=== PATIENT | female | born 1990 | race Caucasian/White ===

== ENCOUNTER 2018-01-04 18:39 | Emergency (ER) | payer OTHER ==
[2018-01-04 18:49] VITALS: BMI 31.8
[2018-01-04] MEDS ORDERED: NS 1000 ML 1,000 ML IV ONE (19:21)
[2018-01-04] MEDS ORDERED: ZOFRAN INJ 4 MG VIAL IVP ONE (19:21)
[2018-01-04] MEDS ORDERED: NS 1000 ML 1,000 ML ONE (19:22)
[2018-01-04] MEDS ORDERED: ZOFRAN INJ 4 MG VIAL ONE (19:22)
[2018-01-04] MEDS ORDERED: BENADRYL INJ 50 MG VIAL IVP ONE (19:34)
[2018-01-04] MEDS ORDERED: BENADRYL INJ 50 MG VIAL ONE (19:35)
[2018-01-04 19:46] LABS: BASOPHILS % (AUTO) 0.4 % (0.2-1.0); EOSINOPHILS % (AUTO) 0.4 % (0.9-2.9); HEMATOCRIT 40.6 % (36.0-47.0); LYMPHOCYTES # (AUTO) 0.9 X10^3/uL (1.3-2.9); LYMPHOCYTES % (AUTO) 19.9 % (21.0-51.0); MEAN CORPUSCULAR HEMOGLOBIN 27.7 pg (27.0-34.0); MEAN CORPUSCULAR HGB CONC 34.5 g/dL (33.0-35.0); MEAN CORPUSCULAR VOLUME 80.3 fL (80.0-100.0); MEAN PLATELET VOLUME 8.9 fL (7.4-11.0); MONOCYTES # (AUTO) 0.3 x10^3/uL (0.3-0.8); MONOCYTES % (AUTO) 5.9 % (0.0-13.0); NEUTROPHILS # (AUTO) 3.3 x10^3/uL (2.2-4.8); NEUTROPHILS % (AUTO) 73.4 % (42.0-75.0); PLATELET COUNT 223 X10^3/uL (150.0-450.0); RED BLOOD COUNT 5.06 X10^6/uL (3.5-5.4); RED CELL DISTRIBUTION WIDTH 15.3 % (11.6-16.5); WHITE BLOOD COUNT 4.5 X10^3/uL (3.6-10.0)
[2018-01-04 19:47] LABS: BILIRUBIN,URINE NEGATIVE (NEGATIVE); BLOOD/HEMOGLOBIN,URINE NEGATIVE (NEGATIVE); GLUCOSE, URINE NEGATIVE (NEGATIVE); KETONES,URINE 1+ (NEGATIVE); LEUKOCYTE ESTERASE ,URINE NEGATIVE (NEGATIVE); NITRITES,URINE NEGATIVE (NEGATIVE); PROTEIN,URINE 1+ (NEGATIVE); UROBILINOGEN,URINE 1+ (NORMAL)
[2018-01-04 19:55] LABS: ALANINE AMINOTRANSFERASE 23 Units/L (12-78); ALBUMIN 3.7 g/dL (3.4-5.0); ALKALINE PHOSPHATASE 63 Units/L (46-116); ASPARTATE AMINO TRANSFERASE 17 Units/L (15-37); BLOOD UREA NITROGEN 14 mg/dL (7-18); CALCIUM 7.8 mg/dL (8.5-10.1); CARBON DIOXIDE 26.2 mmol/L (21-32); CHLORIDE 101 mmol/L (98-107); CREATININE 0.77 mg/dL (0.55-1.02); SODIUM 135 mmol/L (136-145); TOTAL PROTEIN 7.8 g/dL (6.4-8.2); eGFR BLACK RACES > 60 (>60); eGFR NON BLACK RACES > 60 (>60)
[2018-01-04 19:55] LABS: APPEARANCE,URINE CLEAR (CLEAR); COLOR,URINE DARK YELLOW (YELLOW); RBC,URINE NONE SEEN /HPF (NONE SEEN)
[2018-01-04 19:56] LABS: AMORPHOUS SEDIMENT,UR 1+ /HPF (NEGATIVE); BACTERIA,URINE NEGATIVE /HPF (NEGATIVE); SQUAMOUS EPITHELIAL CELL,UR MODERATE /HPF (NEGATIVE)
[2018-01-04 21:27] VITALS: BP 101/56
--- NOTE | 2018-01-04 21:27 | DR.NAUSEAF ---
HPI - Time Seen Time seen: 19:30 - Primary Care Physician Primary Care Physician: NFD - HPI Comment HPI Comment: GETTING WORSE. COUGH CONGESTION AND COLD PRESENT. - Complaints Chief Complaint Doctors Comments: N/V AND BODY ACHES TIMES ONE DAY. Chief Complaint:: PT C/O N/V AND ACHING ALL OVER THAT STARTED LAST NIGHT .. BR - Reviewed Nurses Notes Reviewed: Yes - Source History Provided: Patient - Mode of Arrival Mode of Arrival: Ambulatory - Timing Onset of Chief Complaint: 01/03/18 - Context Onset: Spontaneous Recent: None History of: None - Quality Quality: Bilious - Associated Signs and Symptoms Abdominal Pain Quality: Cramping Abdominal Pain Location: Diffuse Symptoms: Abdominal Pain PMH - PMH Past Medical History: Yes Past Medical History: Hypertension Past Surgical History: Yes Surgical History: Past Surgical History Comment: C-SECTIONS,, 2 - Family History History of Family Medical Conditions: No - Social History Does patient currently use any type of tobacco product: Yes Have you used tobacco products in the last 12 months: Yes Type of Tobacco Use: Cigarettes How many years tobacco product used: 10 Does any household member use tobacco: No Alcohol Use: None Do you use any recreational Drugs:: No Lives With: Family Lives Where: Home - infectious screening In the last 2 months have you had wt loss of >10#?: NO Have you had fever, night sweats or hemotysis?: No Have you traveled outside the country in the last 6 months?: No Isolation: Standard ROS - Review of Systems Constitutional: Weakness, Fatigue Eyes: No Symptoms Reported. negative: Eye Pain, Discharge ENTM: Nose Discharge, Nose Congestion, Throat Pain. negative: Ear Pain Respiratoy: Moist Cough. negative: Short of Breath, Wheezing, Hemoptysis Cardiovascular: negative: Chest Pain, Edema Gastrointestinal/Abdominal: Abdominal Pain, Nausea, Vomiting Genitourinary: No Symptoms Reported. negative: Dysuria, Frequency, Hematuria Neurological: Headache, Weakness, Dizziness Musculoskeletal: Muscle Pain Integumentary: No Symptoms Reported Hematologic/Lymphatic: No Symptoms Reported Endocrine: No Symptoms Reported All Other Systems: Reviewed and Negative PE - Vital Signs Vitals: Temperature 97.2 F Pulse Rate [Left Brachial] 83 Pulse Rate 115 Respiratory Rate 16 Blood Pressure [Left Arm] 101/56 Blood Pressure 122/79 O2 Sat by Pulse Oximetry 98 - General Limitations: No Limitations General Appearance: Alert - Head Head Exam: Normal Inspection - Eyes Eye exam: Normal Appearance - ENT ENT Exam: Normal External Ear Exam. negative: Normal Oropharynx (THROAT RED), TM's Normal Bilaterally (TM BULGING) - Neck Neck Exam: Trachea Midline. negative: Tenderness, Meningismus, Lymphadenopathy - Chest Chest Inspection: Symmetric Chest Wall Rise - Respiratory Respiratory Exam: Normal Lung Sounds Bilat Respiratory Exam: Bilateral Clear to Auscultation - Cardiovascular Cardiovascular Exam: Regular Rate, Normal Rhythm, Normal Heart Sounds - Abdominal Exam Abdominal Exam: Normal Bowel Sounds, Soft. negative: Tenderness - Rectal Rectal Exam: Deferred - External Exam: Female: Deferred : Speculum Exam (Female): Deferred : Bimanual Exam (female): Deferred - Extremities Extremities Exam: Normal Inspection - Back Back Exam: Normal Inspection - Neurologic Neurological Exam: Alert, Oriented X3 - Psychiatric Psychiatric Exam: Normal Affect, Normal Mood - Skin Skin Exam: Normal Color MDM - Additional Information Obtained Additional Information Obtained From: Family - Differential Diagnosis Differential Diagnosis: Considerations may Include:: Gastritis, PUD, Urinary Tract Infection Differential Diagnosis Comment: INFLUENZA, SINUSITIS, BRONCHITIS, GASTROENTERITIS Course - Treatment Treatment: SEE ORDERS. - Education/Counseling Education/Counseling: Patient, Family, Education Educated On: Treatment, Diagnosis, Needs for Follow Up ROR - Labs Reviewed Laboratory Results Reviewed?: Yes Result Diagrams: 01/04/18 19:32 01/04/18 19:32 Laboratory: WBC 4.5 X10^3/uL (3.6-10.0) 01/04/18 19:32 RBC 5.06 X10^6/uL (3.5-5.4) 01/04/18 19:32 Hgb 14.0 g/dL (12.0-16.0) 01/04/18 19:32 Hct 40.6 % (36.0-47.0) 01/04/18 19:32 MCV 80.3 fL (80.0-100.0) 01/04/18 19:32 MCH 27.7 pg (27.0-34.0) 01/04/18 19:32 MCHC 34.5 g/dL (33.0-35.0) 01/04/18 19:32 RDW 15.3 % (11.6-16.5) 01/04/18 19:32 Plt Count 223 X10^3/uL (150.0-450.0) 01/04/18 19:32 MPV 8.9 fL (7.4-11.0) 01/04/18 19:32 Neut % (Auto) 73.4 % (42.0-75.0) 01/04/18 19:32 Lymph % (Auto) 19.9 % (21.0-51.0) L 01/04/18 19:32 Clinch % (Auto) 5.9 % (0.0-13.0) 01/04/18 19:32 Eos % (Auto) 0.4 % (0.9-2.9) L 01/04/18:32 Baso % (Auto) 0.4 % (0.2-1.0) 01/04/18: Neut # (Auto) 3.3 x10^3/uL (2.2-4.8) 01/04/18 19:32 Lymph # (Auto) 0.9 X10^3/uL (1.3-2.9) L 01/04/18 19:32 Clinch # (Auto) 0.3 x10^3/uL (0.3-0.8) 01/04/18 19:32 Eos # (Auto) 0.0 x10^3/uL (0.0-0.2) 01/04/18:32 Baso # (Auto) 0.0 X10^3/uL (0.0-0.1) 01/04/18 19:32 Absolute Nucleated RBC 0.0 /100WBC 01/04/18 19:32 Sodium 135 mmol/L (136-145) L 01/04/18 19:32 Corrected Sodium TNP 01/04/18 19:32 Potassium 3.3 mmol/L (3.5-5.1) L 01/04/18 19:32 Chloride 101 mmol/L (98-107) 01/04/18 19:32 Carbon Dioxide 26.2 mmol/L (21-32) 01/04/18 19:32 BUN 14 mg/dL (7-18) 01/04/18 19:32 Creatinine 0.77 mg/dL (0.55-1.02) 01/04/18 19:32 Est GFR (MDRD) Af Amer > 60 (>60) 01/04/18 19:32 Est GFR (MDRD) Non-Af > 60 (>60) 01/04/18 19:32 Glucose 96 mg/dL (65-99) 01/04/18 19:32 Calcium 7.8 mg/dL (8.5-10.1) L 01/04/18 19:32 Corrected Calcium TNP 01/04/18 19:32 Total Bilirubin 0.60 mg/dL (0.2-1.0) 01/04/18 19:32 AST 17 Units/L (15-37) 01/04/18 19:32 ALT 23 Units/L (12-78) 01/04/18 19:32 Alkaline Phosphatase 63 Units/L (46-116) 01/04/18 19:32 Total Protein 7.8 g/dL (6.4-8.2) 01/04/18 19:32 Albumin 3.7 g/dL (3.4-5.0) 01/04/18 19:32 Globulin 4.1 g/dL (2.5-4.5) 01/04/18 19:32 Albumin/Globulin Ratio 0.9 Ratio (1.1-2.1) L 01/04/18 19:32 Specimen Type Clean catch urine 01/04/18 19: Urine Color Dark yellow (YELLOW) 01/04/18 19: Urine Appearance Clear (CLEAR) 01/04/18 19: Urine pH 8.0 (5.0 - 8.0) 01/04/18 19: Ur Specific [place] 1.010 (1.000-1.030) 01/04/18: Urine Protein 1+ (NEGATIVE) 01/04/18 19: Urine Glucose (UA) Negative (NEGATIVE) 01/04/18 19: Urine Ketones 1+ (NEGATIVE) 01/04/18: Urine Occult Blood Negative (NEGATIVE) 01/04/18: Urine Nitrite Negative (NEGATIVE) 01/04/18 19: Urine Bilirubin Negative (NEGATIVE) 01/04/18 19: Urine Urobilinogen 1+ (NORMAL) 01/04/18 19: Ur Leukocyte Esterase Negative (NEGATIVE) 01/04/18: Urine RBC None seen /HPF (NONE SEEN) 01/04/18 19:19 Urine WBC None seen /HPF (NONE SEEN) 01/04/18 19:19 Ur Squamous Epith Cells Moderate /HPF (NEGATIVE) 01/04/18 19:19 Amorphous Sediment 1+ /HPF (NEGATIVE) 01/04/18 19:19 Urine Bacteria Negative /HPF (NEGATIVE) 01/04/18 19:19 Ur Culture Indicated? No/not indicated 01/04/18 19:19 Influenza Type A (PCR) Negative (NEGATIVE) 01/04/18 19:19 Influenza Type B (PCR) Negative (NEGATIVE) 01/04/18 19:19 - Diagnosis Discharge Problem: Hypokalemia, Gastroenteritis - Discharge Plan Disposition: HOME, SELF-CARE Condition: Stable Prescriptions: Ondansetron [Zofran ODT 8 mg] 8 mg PO Q8H PRN #12 tab PRN Reason: Nausea/Vomiting - Follow ups/Referrals Follow ups/Referrals: NFD,None [Primary Care Provider] - 3 days - Instructions Instructions: Viral Gastroenteritis, Adult, [id number], Hypokalemia, Nausea and Vomiting, Adult, [id number]-Evke Additional Instructions: RETURN TO ED IF WORSE.
[2018-01-04] MEDS ORDERED: K-LYTE EFFERVESCENT PO ONE (21:28)
[2018-01-04] MEDS ORDERED: K-LYTE EFFERVESCENT ONE (21:32)
== END 2018-01-04 21:45 | disposition home or self-care (01) ==
LOC: ER 18:39
DX: K52.89 Other specified noninfective gastroenteritis and colitis (principal); E87.6 Hypokalemia
CPT/HCPCS: 36415; 80053; 81001; 85025; 87502; 96365; 96367; 96374; 96375; 99283; A4222; J1200; J2405